=== PATIENT | female | born 1995 | race American Indian/Alaskan Native ===

== ENCOUNTER 2016-09-22 00:32 | Emergency (ER) | payer SELFPAY ==
[2016-09-22 00:59] VITALS: BP 111/73
[2016-09-22 01:45] LABS: Basophils % (Auto) 1.3 % (0.0-1.8); Eosinophils % (Auto) 9.2 % (0.0-4.3); Hematocrit 41.3 % (30.3-42.9); Hemoglobin 13.4 gm/dl (10.1-14.3); Mean Corpuscular HGB Conc 32 % (30-34); Mean Corpuscular Hemoglobin 29 pg (28-32); Mean Corpuscular Volume 90 fl (79-97); Red Cell Distribution Width 13.9 % (13.2-15.2); White Blood Count 6.6 K/mm3 (4.5-11.0)
[2016-09-22 01:50] LABS: Anion Gap 19 mmol/L; Blood Urea Nitrogen 11 mg/dL (7-17); Calcium 8.8 mg/dL (8.4-10.2); Carbon Dioxide 21 mmol/L (22-30); Chloride 99.4 mmol/L (98-107); Glucose 94 mg/dL (65-100); Potassium 4.2 mmol/L (3.6-5.0); Sodium 135 mmol/L (137-145)
[2016-09-22 01:55] LABS: Bilirubin,Urine NEG (Negative); Blood,Urine LG (Negative); Ketones,Urine NEG (Negative); Leukocyte Esterase,Urine NEG (Negative); Nitrite,Urine NEG (Negative); Protein,Urine <15 mg/dL mg/dL (Negative); Urobilinogen,Urine < 2.0 mg/dL (<2.0)
--- NOTE | 2016-09-22 02:37 | Ultrasound Report ---
FINAL REPORT PROCEDURE: US OB \T\lt; = 14 WEEKS FETUS TECHNIQUE: Real-time transabdominal sonography of the uterus, placenta, amniotic fluid, adnexa, and fetus was performed with image documentation. Measurements were obtained to determine age/size. M-mode Doppler was used to document heartbeat. CPT 60447 HISTORY: COMPARISON: No prior studies are available for comparison. FINDINGS: No intrauterine is identified. Uterus measures 7.7 x 3.7 x 6.1 centimeters. Endometrium measures 7.2 millimeters. There is no endometrial fluid. Right ovary measures 5.6 x 5.3 x 4.7 centimeters. There is a 4.1 centimeter cyst. There is no mass or torsion. Left ovary measures 2.4 x 1.2 x 1.8 centimeters. There is no mass, cyst or torsion. There is no free pelvic fluid. IMPRESSION: No intrauterine or ectopic is identified. There is a 4.1 centimeters cyst in the right ovary. There is no ovarian torsion, mass or free fluid.
--- NOTE | 2016-09-22 02:49 | Ultrasound Report ---
FINAL REPORT PROCEDURE: US OB \T\lt; = 14 WEEKS FETUS TECHNIQUE: Real-time transvaginal sonography of the uterus, placenta, amniotic fluid, adnexa, and fetus was performed with image documentation. Measurements were obtained to determine age/size. M-mode Doppler was used to document heartbeat. HISTORY: COMPARISON: No prior studies are available for comparison. FINDINGS: No intrauterine is identified. Uterus measures 7.7 x 3.7 x 6.1 centimeters. Endometrium measures 7.2 millimeters. There is no endometrial fluid. Right ovary measures 5.6 x 5.3 x 4.7 centimeters. There is a 4.1 centimeter cyst. There is no mass or torsion. Left ovary measures 2.4 x 1.2 x 1.8 centimeters. There is no mass, cyst or torsion. There is no free pelvic fluid. IMPRESSION: No intrauterine or ectopic is identified. There is a 4.1 centimeters cyst in the right ovary. There is no ovarian torsion, mass or free fluid.
--- NOTE | 2016-09-22 03:51 | Emergency Department Report ---
Chief Complaint: Abdominal Pain Stated Complaint: ABD PAIN/VAGINAL BLEEDING - HPI History of Present Illness: 21F PMH miscarriages p/w c/o vaginal bleeding. Pt claims she is 18 weeks . + vaginal spotting. - ROS Review of Systems: pt claims she is 18 weeks , hx of miscarriages - Exam Vital Signs: Vital Signs 09/22/16 00:51 Temperature 98.8 F Pulse Rate 89 Blood Pressure 111/73 O2 Sat by Pulse 99 Oximetry Physical Exam: pt is aaox3, NAD MSE screening note: Focused history and physical exam performed. Due to findings the following was ordered: Screening Assessment/Plan/Differential Dx: Threatened , possible miscarriage 1- This initial assessment/diagnostic orders/clinical plan/ treatment(s) is/are subject to change based on pt's health status, clinical progression and re- assessment by fellow clinical providers in the ED. Further treatment and workup at subsequent clinical provers discretion. Patient/guardians urged not to elope from ED as their condition may be serious if not clinically assessed and managed. 2-patient claims she is 18 weeks , states that she is having crampy lower abdominal pain and vaginal spotting. Patient claims she has had miscarriages in the past. 3-briefly seen with triage nurse. I ordered a vaginal bleeding protocol including hCG type and screen and ultrasound. Ultrasound shows no intrauterine , patient hCG level is 0 negative in the urine as well. I went to fully assess patient and perform full clinical interview the patient had eloped from her room. I search for her in the ER but could not find her. I called both numbers listed by the patient and her demographics and both numbers were disconnected. I informed the charge nurse and Dr. Noyola and wrote an elopement note. Patient discussed with doctor:: PK NOYOLA ED Medical Decision Making - Lab Data Result diagrams: 09/22/16 01:10 09/22/16 01:10 ED Disposition for MSE Condition: Stable Instructions: Abdominal Pain (ED) Referrals: PRIMARY CARE, [Primary Care Provider] - 3-5 Days
[2016-09-22 06:26] LABS: Platelet Count 274 K/mm3 (140-440)
== END 2016-09-22 03:45 | disposition left against medical advice (07) ==
LOC: ED 00:32
DX: N93.9 Abnormal uterine and vaginal bleeding, unspecified (principal); Z53.21 Procedure and treatment not carried out due to patient leaving prior to being seen by health care provider
CPT/HCPCS: 36415; 76801; 76817; 80048; 81001; 81025; 84702; 85025; 86850; 86900; 86901